=== PATIENT | female | born 1980 | race Caucasian/White ===

== ENCOUNTER 2016-07-18 18:37 | Emergency (ER) | payer OTHER ==
[~2016-07-18] VITALS: Ht 157.5 cm; Wt 63.5 kg
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
[2016-07-18] MEDS ORDERED: MOBIC15 M1 PO (20:38)
[2016-07-18 20:51] VITALS: BP 104/63
== END 2016-07-18 20:51 ==
LOC: ERH 18:37
DX: M79.632 Pain in left forearm (principal)
CPT/HCPCS: 73090-LT